=== PATIENT | female | born 1990 | race Caucasian/White ===

== ENCOUNTER 2017-09-08 21:51 | Emergency (ER) | payer BC ==
[~2017-09-08] VITALS: Ht 154.9 cm; Wt 65.1 kg
[2017-09-08 22:46] LABS: APPEARANCE SL.HAZY ((CLEAR)); BILIRUBIN NEGATIVE; BLOOD MODERATE; COLOR YELLOW ((YELLOW)); GLUCOSE (STRIP) NEGATIVE; KETONES NEGATIVE; LEUKOCYTES LARGE; NITRITE NEGATIVE; PROTEIN (STRIP) NEGATIVE; SPECIFIC GRAVITY 1.013 (1.000-1.030); UROBILINOGEN 0.2 MG/DL (0.2-1.0)
[2017-09-08 22:51] LABS: HEMATOCRIT 25.8 % (36.0-46.0); HEMOGLOBIN 8.3 G/DL (11.9-15.5); MCH 27.1 PG (29.0-34.0); MCHC 32.2 G/DL (30.0-36.0); MCV 84.3 FL (83-99); PLATELET COUNT 447 K/uL (156-360); RBC DIS.WIDTH-CV 13.2 % (11.8-14.6); RBC DIS.WIDTH-SD 40.8 % (39-53); RED BLOOD COUNT 3.06 M/uL (3.80-5.20)
[2017-09-08 22:57] LABS: BACTERIA NONE SEEN /HPF; EPITHELIAL CELLS RARE /HPF; MUCUS TRACE /LPF; UCUL ADDED? YES; WHITE BLOOD CELLS TNTC /HPF (0-5)
[2017-09-08 23:04] LABS: CHLORIDE 108 mEq/L (99-109); POTASSIUM 3.6 mEq/L (3.7-5.4); SODIUM 140 mEq/L (136-147)
[2017-09-08 23:06] LABS: GLUCOSE 125 mg/dL (70-99); TOTAL PROTEIN 6.9 g/dL (6.4-8.3)
[2017-09-08 23:08] LABS: TOTAL BILIRUBIN 0.3 mg/dL (0.0-1.0)
[2017-09-08 23:09] LABS: ALKALINE PHOSPHATASE 82 IU/L (3-129)
[2017-09-08 23:10] LABS: CREATININE 0.9 mg/dL (0.6-1.3); GFR ESTIMATE (CALCULATED) > 59 mL/min/
[2017-09-08 23:11] LABS: AST (GOT) 12 IU/L (2-34); DIRECT BILIRUBIN 0.2 mg/dL (0.0-0.3); UREA NITROGEN (BUN) 11 mg/dL (9-23)
[2017-09-08 23:13] LABS: ALT (GPT) 13 IU/L (3-49)
[2017-09-08] MEDS ORDERED: KEFLEX500 MG PO (23:42)
[2017-09-09 00:33] VITALS: BP 117/65
== END 2017-09-09 00:33 | disposition home or self-care (01) ==
LOC: EME 21:51
PROVIDERS: Physician Assistant
DX: O86.20 Urinary tract infection following delivery, unspecified (principal); O86.4 Pyrexia of unknown origin following delivery; N64.4 Mastodynia; R51 Headache
CPT/HCPCS: 76856; 80048; 80076; 81003; 85027; 87040; 87086; 87210; 99281; 99283; 99285